=== PATIENT | female | born 1970 | race Caucasian/White ===

== ENCOUNTER 2017-07-31 18:01 | Emergency (ER) | payer MEDICAID ==
[~2017-07-31] VITALS: Ht 160 cm; Wt 78.0 kg
[2017-07-31 18:08] VITALS: BP_SYST 155
--- NOTE | 2017-07-31 19:18 | NUR ---
Patient to ER bed 08 to gown for evaluation. Side rails up. Report recieved from ZAC Moscoso
--- NOTE | 2017-07-31 19:20 | NUR ---
Patient walked into ER complaining of bilateral leg bug bites since yesterday. Redness and swelling noted. Patient also reports that she just finished a course of antibiotics for a URI . Wheezing noted. No other complaints/injuries per patient or as noted. Will continue to monitor.
--- NOTE | 2017-07-31 19:21 | NUR ---
BI Kaur at bedside examining patient.
[2017-07-31] MEDS ORDERED: LORATADINE 10 MG TABLET PO ONE (19:30)
[2017-07-31] MEDS ORDERED: IPRATROPIUM/ALBUTEROL SULFATE 3 ML AMPUL.NEB INH ONE (19:30)
[2017-07-31] MEDS ORDERED: PREDNISONE 20 MG TABLET PO ONE (19:30)
[2017-07-31] MEDS ORDERED: ALBUTEROL SULFATE 0.083% 2.5 MG/3 ML VIAL.NEB INH ONE ×2 (19:30)
[2017-07-31 20:25] VITALS: BP_SYST 146
--- NOTE | 2017-07-31 20:25 | NUR ---
Patient given written and verbal discharge instructions and verbalizes understanding. ER MD discussed with patient the results and treatment provided. Patient in stable condition. ID arm band removed. Rx of Promethazine VC with Codeine, Prednisone, Hydrocortisone Ointment, Loratidine, and Tessalon Perles given. Patient educated on pain management and to follow up with PMD in 2-3 days. Pain Scale 0/10 Opportunity for questions provided and answered.
== END 2017-07-31 20:25 | disposition home or self-care (01) ==
LOC: SED 18:01
DX: S80.862A Insect bite (nonvenomous), left lower leg, initial encounter (principal); S80.861A Insect bite (nonvenomous), right lower leg, initial encounter; J45.901 Unspecified asthma with (acute) exacerbation; J06.9 Acute upper respiratory infection, unspecified; R03.0 Elevated blood-pressure reading, without diagnosis of hypertension; Z87.891 Personal history of nicotine dependence; Z88.0 Allergy status to penicillin; W57.XXXA Bitten or stung by nonvenomous insect and other nonvenomous arthropods, initial encounter; Y93.89 Activity, other specified; Y92.89 Other specified places as the place of occurrence of the external cause; Y99.8 Other external cause status
CPT/HCPCS: 71010; 94640; 99284; J7512

== ENCOUNTER 2017-09-06 14:50 | Emergency (ER) | payer MEDICAID ==
[~2017-09-06] VITALS: Ht 160 cm; Wt 76.7 kg
[2017-09-06 14:57] VITALS: BP_SYST 162
--- NOTE | 2017-09-06 15:01 | NUR ---
Ambulatory to bed 3
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
--- NOTE | 2017-09-06 15:30 | NUR ---
[facility] in ED - 09/06/17 at 1534 by [email or web address] endorsed care to ZAC Duran; pt sitting comfortably in bed with no signs of distress; awaiting MD for assess/eval
--- NOTE | 2017-09-06 15:34 | NUR ---
endorsed care to ZAC Hoffman; pt sitting comfortably in bed with no signs of distress; awaiting MD for assess/eval
[2017-09-06 15:50] VITALS: BP_SYST 128
--- NOTE | 2017-09-06 15:50 | NUR ---
Patient given written and verbal discharge instructions and verbalizes understanding. ER MD discussed with patient the results and treatment provided. Patient in stable condition. ID arm band removed. no rx given. Patient educated on pain management and to follow up with PMD. Pain Scale 0/10. Opportunity for questions provided and answered.
== END 2017-09-06 15:50 | disposition home or self-care (01) ==
LOC: SED 14:50
DX: S00.83XA Contusion of other part of head, initial encounter (principal); J45.909 Unspecified asthma, uncomplicated; Z88.0 Allergy status to penicillin; W22.8XXA Striking against or struck by other objects, initial encounter; Y93.89 Activity, other specified; Y92.89 Other specified places as the place of occurrence of the external cause; Y99.8 Other external cause status
CPT/HCPCS: 99283